=== PATIENT | male | born 1975 | race Caucasian/White ===

== ENCOUNTER 2021-08-24 15:37 | Emergency (ER) | payer OTHER, SELFPAY ==
[2021-08-24 15:46] VITALS: BP 129/83; PULSE 91; RESP 15; TEMP 36.7; O2SAT 98
--- NOTE | 2021-08-24 15:59 | ED.GENADULT ---
HPI - General Adult General Chief complaint: Unspecified Stated complaint: INSOMNIA X 1 MONTH Time Seen by Provider: 08/24/21 15:57 History of Present Illness HPI narrative: 45-year-old male presents emergency room for evaluation of insomnia for approximately 1 month. Patient states he averages 1 to 3 hours of sleep at night for over 30 days. Patient has a headache, body aches and states feels very anxious. Patient reports she has tried Seroquel, Ambien, drinking alcohol, THC, Lunesta, melatonin, benzodiazepines. Patient reports he was on Seroquel for several years, but discontinued taking it because it is no longer helped Related Data Allergies Allergy/AdvReac Type Severity Reaction Status Date / Time PCN Allergy Severe ANAPHALACTI Uncoded 05/08/14 16:13 C Review of Systems Review of Systems: CONSTITUTIONAL: Denies fever, chills, or sweats. EYES: Denies visual changes, redness, or discharge. ENT: Denies rhinorrhea, congestion, sore throat, or otalgia. CARDIOVASCULAR: Denies chest pain, palpitations, or edema. RESPIRATORY: Denies cough or dyspnea. GASTROINTESTINAL: Denies abdominal pain, nausea, vomiting, or diarrhea. GENITOURINARY: Denies dysuria or hematuria. SKIN: Denies rash or itching. MUSCULOSKELETAL: Denies back pain, joint pain, or myalgia. NEUROLOGIC: Denies headache, numbness, dizziness, or weakness. PSYCHIATRIC: Denies anxiety or depression. Exam Narrative: GENERAL: Well-appearing, well-nourished, and in no acute distress. HEAD: Normocephalic, atraumatic. EYES: PERRLA and EOMI. CHEST: Clear to auscultation. No respiratory distress. No wheezes rales or rhonchi HEART: Regular rate and rhythm. No murmur heard. Normal peripheral pulses. ABDOMEN: Soft, nontender, nondistended, normal active bowel sounds. EXTREMITIES: Normal range of motion. No edema. SKIN: Warm, dry, no rash. NEURO: No focal deficits. Alert and oriented x3. PSYCH: Normal mood and affect. Course Vital Signs Vital signs: Vital Signs Temperature 36.7 C 08/24/21 15:46 Pulse Rate 91 08/24/21 15:46 Respiratory Rate 15 08/24/21 15:46 Blood Pressure 129/83 08/24/21 15:46 Pulse Oximetry 98 08/24/21 15:46 Oxygen Delivery Room Air 08/24/21 15:46 Temperature 36.7 C 08/24/21 15:46 Pulse Rate 91 08/24/21 15:46 Respiratory Rate 15 08/24/21 15:46 Blood Pressure 129/83 08/24/21 15:46 Pulse Oximetry 98 08/24/21 15:46 Oxygen Delivery Room Air 08/24/21 15:46 Medical Decision Making Vital Signs Vital Signs: Vital Signs Temperature 36.7 C 08/24/21 15:46 Pulse Rate 91 08/24/21 15:46 Respiratory Rate 15 08/24/21 15:46 Blood Pressure 129/83 08/24/21 15:46 Pulse Oximetry 98 08/24/21 15:46 Oxygen Delivery Room Air 08/24/21 15:46 Temperature 36.7 C 08/24/21 15:46 Pulse Rate 91 08/24/21 15:46 Respiratory Rate 15 08/24/21 15:46 Blood Pressure 129/83 08/24/21 15:46 Pulse Oximetry 98 08/24/21 15:46 Oxygen Delivery Room Air 08/24/21 15:46 Discharge Plan Discharge Clinical Impression: Insomnia Patient Disposition: Home, Self-Care Condition: Stable Instructions: Antibiotic Form Prescriptions: New hydroxyzine pamoate [Vistaril] 50 mg capsule 50 mg PO HS 30 Days Qty: 30 0RF lorazepam [Ativan] 1 mg tablet 1 mg PO HS PRN (Reason: sleep) 10 Days Qty: 10 0RF Follow-up/Referrals: PHYSICIAN,[employer]ING [employer] CARRIER [Primary Care Provider] - Time of Disposition: 16:30
== END 2021-08-24 17:09 | disposition home or self-care (01) ==
LOC: ANHED 16:37
PROVIDERS: Emergency Provider Nurse Practitioner Family
DX: G47.00 Insomnia, unspecified (principal)
CPT/HCPCS: 99283